=== PATIENT | female | born 1970 | race American Indian/Alaskan Native ===

== ENCOUNTER 2018-03-13 18:59 | Emergency (ER) | payer OTHER ==
[2018-03-13 19:55] LABS: Basophils # (Auto) 0.1 K/mm3 (0.0-0.1); Basophils % (Auto) 1.2 % (0.0-1.8); Eosinophils % (Auto) 0.6 % (0.0-4.3); Hematocrit 47.5 % (30.3-42.9); Lymphocytes # (Auto) 3.5 K/mm3 (1.2-5.4); Lymphocytes % (Auto) 44.6 % (13.4-35.0); Mean Corpuscular HGB Conc 34 % (30-34); Mean Corpuscular Volume 93 fl (79-97); Monocytes # (Auto) 0.5 K/mm3 (0.0-0.8); Monocytes % (Auto) 5.8 % (0.0-7.3); Platelet Count 203 K/mm3 (140-440); Red Blood Count 5.09 M/mm3 (3.65-5.03); Red Cell Distribution Width 13.4 % (13.2-15.2)
[2018-03-13 20:14] LABS: BUN/Creatinine Ratio 18; Blood Urea Nitrogen 14 mg/dL (7-17); Calcium 9.5 mg/dL (8.4-10.2); Hemolysis Index 11
[2018-03-13] MEDS ORDERED: NACL 0.9% 1000 ML 1,000 ML ONE (20:57)
[2018-03-13] MEDS ORDERED: NACL 0.9% 1000 ML 1,000 ML IV ONE (21:00)
[2018-03-13] MEDS ORDERED: HumuLIN R IV ONE (21:01)
[2018-03-13] MEDS ORDERED: HumuLIN R ONE (21:02)
--- NOTE | 2018-03-13 21:04 | Emergency Department Report ---
ED General Adult HPI - General Chief complaint: Hyperglycemia Stated complaint: HIGH SUGAR/TOES NUMB Time Seen by Provider: 03/13/18 20:16 Source: patient Mode of arrival: Ambulatory Limitations: No Limitations - History of Present Illness Initial comments: 47-year-old female history of diabetes presents requesting refill on metformin and glimepiride. States she has been out of medication for 1-2 months. Based does not have a PCP here in [place]. Patient moved from [place] a months ago. Patient reports generalized weakness and numbness to right fifth toe. -: month(s) (2) Consistency: constant Improves with: none Worsens with: none Associated Symptoms: weakness. denies: chest pain, cough, fever/chills, headaches, nausea/vomiting Treatments Prior to Arrival: none - Related Data Previous Rx's Medication Instructions Recorded Last Taken Type Glimepiride [Amaryl] 2 mg PO QAM #30 tablet 03/13/18 Unknown Rx Metformin HCl 1,000 mg PO BID #60 tablet 03/13/18 Unknown Rx Allergies Allergy/AdvReac Type Severity Reaction Status Date / Time No Known Allergies Allergy Unverified 03/13/18 19:27 ED Review of Systems ROS: Stated complaint: HIGH SUGAR/TOES NUMB Other details as noted in HPI Comment: All other systems reviewed and negative Constitutional: denies: chills, fever Respiratory: denies: cough Cardiovascular: denies: chest pain Gastrointestinal: denies: abdominal pain, nausea, vomiting Neurological: denies: headache ED Past Medical Hx - Past Medical History Previous Medical History?: Yes Hx Hypertension: Yes Hx Diabetes: Yes - Surgical History Past Surgical History?: Yes - Social History Smoking Status: Current Every Day Smoker Substance Use Type: None - Medications Home Medications: Home Medications Medication Instructions Recorded Confirmed Last Taken Type Glimepiride [Amaryl] 2 mg PO QAM #30 tablet 03/13/18 Unknown Rx Metformin HCl 1,000 mg PO BID #60 tablet 03/13/18 Unknown Rx ED Physical Exam - General Limitations: No Limitations General appearance: alert, in no apparent distress - Head Head exam: Present: atraumatic, normocephalic - Eye Eye exam: Present: normal appearance - ENT ENT exam: Present: mucous membranes moist - Neck Neck exam: Present: normal inspection - Respiratory Respiratory exam: Present: normal lung sounds bilaterally. Absent: respiratory distress - Cardiovascular Cardiovascular Exam: Present: regular rate, normal rhythm - GI/Abdominal GI/Abdominal exam: Present: soft. Absent: distended, tenderness - Extremities Exam Extremities exam: Present: normal inspection - Neurological Exam Neurological exam: Present: alert, oriented X3, CN II-XII intact - Psychiatric Psychiatric exam: Present: normal affect, normal mood - Skin Skin exam: Present: warm, dry, intact, normal color ED Course Vital Signs 03/13/18 03/13/18 19:24 22:40 Temperature 98.2 F 98.2 F Pulse Rate 90 79 Respiratory 16 18 Rate Blood Pressure 132/95 Blood Pressure 146/96 [Right] O2 Sat by Pulse 99 99 Oximetry ED Medical Decision Making - Lab Data Result diagrams: 03/13/18 19:36 03/13/18 19:36 - Medical Decision Making 37-year-old female with history of diabetes presents to the ED for medication refill. This is been 2 months since she has taken her metformin and glimepiride. Patient admits that she has not been following her diabetic diet, states she does not know what she can and cannot eat. States that she was unaware that she should not be eating sweets or drinking juices. Patient education and diabetic diet, incorporation of exercise, compliance with medications. Return precautions given. Outpatient follow-up information also provided. Initial glucose was in the 600s, patient given IV fluids and insulin. Labs do not show evidence of DKA. Repeat Accu-Chek in the 300s. Patient feeling much better. Will discharge at this time. - Differential Diagnosis hyperglycemia, DKA, neuropathy Critical care attestation.: If time is entered above; I have spent that time in minutes in the direct care of this critically ill patient, excluding procedure time. ED Disposition Clinical Impression: Hyperglycemia Disposition: DC-01 TO HOME OR SELFCARE Is pt being admited?: No Condition: Stable Instructions: Diabetes Mellitus Type 2 in Adults (ED), Meal Planning with Diabetes Exchanges (DC), Diabetic Hyperglycemia (ED) Prescriptions: Glimepiride [Amaryl] 2 mg PO QAM #30 tablet Metformin HCl 1,000 mg PO BID #60 tablet Referrals: [facility] [Provider Group] - 3-5 Days [facility] [Outside] - 3-5 Days Time of Disposition: 22:39
[2018-03-13 21:52] LABS: Bilirubin,Urine NEG (Negative); Blood,Urine NEG (Negative); Color,Urine Straw (Yellow); Protein,Urine <15 mg/dL mg/dL (Negative); RBC,Urine < 1.0 /HPF (0.0-6.0); Urobilinogen,Urine < 2.0 mg/dL (<2.0); WBC,Urine < 1.0 /HPF (0.0-6.0)
[2018-03-13 22:41] VITALS: BP 146/96
== END 2018-03-13 23:00 | disposition home or self-care (01) ==
LOC: ED 18:59
DX: E11.65 Type 2 diabetes mellitus with hyperglycemia (principal); I10 Essential (primary) hypertension; F17.200 Nicotine dependence, unspecified, uncomplicated
CPT/HCPCS: 36415; 80048; 81001; 82805; 82962; 85025; 96361; 96374; 99284; J7030; J1815